=== PATIENT | female | born 1980 | race Two or more races ===

== ENCOUNTER 2023-10-11 15:03 | Emergency (ER) | payer MEDICAID ==
[~2023-10-11] VITALS: Ht 170.2 cm; Wt 77.3 kg
[2023-10-11] MEDS ORDERED: FLUO20CA36 PO (15:15)
[2023-10-11] MEDS ORDERED: OMEP20 PO (15:15)
[2023-10-11] MEDS ORDERED: MEDR150V13 IM (15:15)
[2023-10-11] MEDS ORDERED: MELO-106 PO (15:15)
[2023-10-11 15:17] VITALS: TEMP 99.5
[2023-10-11] MEDS ORDERED: KETO15CR2 TP (15:17)
[2023-10-11] MEDS ORDERED: SODIUM CHLORIDE 0.9% 1,000 ML IV ONE (16:45)
[2023-10-11 16:47] LABS: BASOPHILS % (AUTO) 0.7 % (0.0-2.0); EOSINOPHILS % (AUTO) 0.9 % (1.0-6.0); HEMATOCRIT 38.6 % (36-46); HEMOGLOBIN 13.1 g/dL (12.0-16.0); LYMPHOCYTES # (AUTO) 2.5 K/uL (1.0-4.8); LYMPHOCYTES % (AUTO) 28.3 % (22.0-44.0); MEAN CORPUSCULAR HEMOGLOBIN 29.1 pg (26.0-34.0); MEAN CORPUSCULAR HGB CONC 33.9 G/dL (31.0-37.0); MEAN CORPUSCULAR VOLUME 86 fL (80-100); MONOCYTES # (AUTO) 0.6 K/uL (0.1-1.0); MONOCYTES % (AUTO) 6.6 % (2.0-9.0); NEUTROPHILS # (AUTO) 5.7 K/uL (1.8-7.7); NEUTROPHILS % (AUTO) 63.5 % (40.0-70.0); PLATELET COUNT (AUTO) 311 K/uL (150-450); RED BLOOD CELL COUNT(AUTO) 4.49 MIL/uL (4.00-5.20); RED CELL DISTRIBUTION WIDTH 13.1 % (11.5-14.5)
[2023-10-11 16:57] LABS: ANION GAP 11 mmol/L (8-16); CALCIUM, TOTAL 9.3 mg/dL (8.8-10.5); CARBON DIOXIDE 23 mmol/L (22-29); CHLORIDE 105 mmol/L (98-107); CREATININE 0.72 mg/dL (0.60-1.30); GLOMERULAR FILTR. RATE CALC > 60 mL/min (>60); GLUCOSE,RANDOM 100 mg/dL (70-110); SODIUM SERUM 139 mmol/L (136-145); UREA NITROGEN, BLOOD 8 mg/dL (7-18)
[2023-10-11 17:11] LABS: ALANINE AMINOTRANSFERASE 30 U/L (12-78); ALBUMIN 3.6 g/dL (3.4-5.0); ALKALINE PHOSPHATASE 67 U/L (46-116); ASPARTATE AMINOTRANSFERASE 19 U/L (15-37); BILIRUBIN,TOTAL 0.3 mg/dL (0.1-1.0); HCG,QUANTITATIVE < 1 mIU/mL (0-6); LIPASE 44 U/L (16-77)
[2023-10-11 22:00] VITALS: BP 118/71; PULSE 84; RESP 18
[2023-10-11] MEDS ORDERED: FLUC150T61 PO (23:14)
[2023-10-11] MEDS ORDERED: NYST30CR9 TP (23:14)
== END 2023-10-12 00:38 | disposition home or self-care (01) ==
LOC: EMS 15:09
DX: L30.4 Erythema intertrigo (principal); R10.31 Right lower quadrant pain; F17.210 Nicotine dependence, cigarettes, uncomplicated; Z88.2 Allergy status to sulfonamides
CPT/HCPCS: 99284; 74176; 96360; 76856; 80053; 83690; 84702; 85025; 36415; 74022; J7030